=== PATIENT | female | born 1955 ===

== ENCOUNTER 2021-06-18 10:17 | Outpatient (CLI) | payer OTHER | END 2021-06-18 10:27 | disposition home or self-care (01) | LOC: SONOGRAMA 10:17 | DX: R82.998 Other abnormal findings in urine (principal) ==

== ENCOUNTER 2021-08-01 07:12 | Outpatient (CLI) | payer OTHER | END 2021-08-01 07:54 | disposition home or self-care (01) | LOC: NUCLEAR 07:12 | PROVIDERS: ATTEND Physical Medicine & Rehabilitation | DX: M25.552 Pain in left hip (principal); M25.551 Pain in right hip; M54.59 Other low back pain | CPT/HCPCS: 78315; A9503 ==

== ENCOUNTER 2022-02-21 13:50 | Outpatient (CLI) | payer OTHER | END 2022-02-21 13:57 | disposition home or self-care (01) | LOC: MAMO-SONO 13:50 | PROVIDERS: ATTEND Internal Medicine | DX: N60.12 Diffuse cystic mastopathy of left breast (principal); N60.11 Diffuse cystic mastopathy of right breast; N63.0 Unspecified lump in unspecified breast ==

== ENCOUNTER → 2022-02-21 14:07 | Outpatient (CLI) | payer OTHER | END | disposition home or self-care (01) | LOC: NUCLEAR 12:00 | PROVIDERS: ATTEND Internal Medicine | DX: M81.0 Age-related osteoporosis without current pathological fracture (principal) ==